=== PATIENT | male | born 1960 | race African-American/Black ===

== ENCOUNTER 2020-01-14 19:34 | Emergency (ER) | payer MEDICAID, OTHER ==
[~2020-01-14] VITALS: Ht 177.8 cm; Wt 72.6 kg
[2020-01-14 19:55] VITALS: BP 145/84
== END 2020-01-14 21:43 | disposition left against medical advice (07) ==
LOC: EDBD 19:34 → ER 19:34
DX: T67.5XXA Heat exhaustion, unspecified, initial encounter (principal); Z53.21 Procedure and treatment not carried out due to patient leaving prior to being seen by health care provider
CPT/HCPCS: 93005